=== PATIENT | female | born 1945 | race Caucasian/White ===

== ENCOUNTER 2020-12-07 08:03 | Outpatient (CLI) | payer OTHER, MEDICARE, SELFPAY | END 2020-12-07 08:04 | disposition home or self-care (01) | PROVIDERS: PCP Internal Medicine | DX: Z23 Encounter for immunization (principal) | CPT/HCPCS: 0001A; 91300 ==

== ENCOUNTER 2020-12-26 07:48 | Outpatient (CLI) | payer OTHER, SELFPAY ==
--- NOTE | 2020-12-26 08:57 | ECG_ITS ---
Measurements Intervals [place] Rate: 69 P: 37 [place]: 181 QRS: -11 QRSD: 100 T: 18 QT: 382 QTc: 410 Interpretive Statements SINUS RHYTHM BORDERLINE ST ABNORMALITY- ANTERIOR LEADS BASELINE ARTIFACT- I, III, AVR, AVL BORDERLINE ECG Electronically Signed On 12-26-2020 9:16:56 CDT by Anup Yuan D.O.
[2020-12-26 09:45] LABS: Basophils Absolute Auto 0.1 K/mm3 (0.0-0.1); Basophils Percent Auto 0.6 % (0.2-1.2); Eosinophils Absolute Auto 0.1 K/mm3 (0-0.3); Eosinophils Percent Auto 0.9 % (0-4.4); Hematocrit 42.5 % (37.0-47.0); Hemoglobin 13.8 g/dL (12.0-15.0); Immature Granulocyte Absolute 0.02 K/mm3 (0.00-0.031); Immature Granulocyte Percent A 0.3 % (0-0.5); Lymphocytes Absolute Auto 1.34 K/mm3 (0.9-3.2); Lymphocytes Percent Auto 17.2 % (18.3-44.2); Mean Corpuscular HGB Conc 32.5 g/dl (32-36); Mean Corpuscular Hemoglobin 32.1 pg (26-34); Mean Corpuscular Volume 98.8 fl (80-100); Mean Platelet Volume 10.5 fl (7.4-10.4); Monocytes Absolute Auto 0.7 K/mm3 (0.1-0.6); Monocytes Percent Auto 9.5 % (2.6-8.5); Neutrophils Absolute Auto 5.6 K/mm3 (1.3-6.7); Neutrophils Percent Auto 71.5 % (45.5-73.1); Platelet Count Result 252 k/mm3 (150-375); Red Cell Distribution Width 12.8 % (11.5-14.5); White Blood Count 7.8 K/mm3 (4.5-10.0)
[2020-12-26 09:48] LABS: Albumin Level 4.1 g/dL (3.5-5.1); Estimated Glomerular Filt Rate > 60; Glucose 94 mg/dL (65-105)
[2020-12-26 10:04] LABS: Urine Cotinine NEGATIVE
[2020-12-26 10:05] LABS: Hemoglobin A1C 5.2 % (<5.7)
== END 2020-12-26 07:49 | disposition home or self-care (01) ==
LOC: ANHSURGERY 07:55
PROVIDERS: PCP Internal Medicine; Visit Provider Orthopaedic Surgery
DX: Z01.818 Encounter for other preprocedural examination (principal); M17.0 Bilateral primary osteoarthritis of knee
CPT/HCPCS: 80307; 82040; 82565; 82947; 83036; 85025; 86850; 86900; 86901; 87081; 93005

== ENCOUNTER 2020-12-28 07:58 | Outpatient (CLI) | payer OTHER, MEDICARE, SELFPAY | END 2020-12-28 07:59 | disposition home or self-care (01) | LOC: ANHCOVIDVC 07:58 | PROVIDERS: PCP Internal Medicine | DX: Z23 Encounter for immunization (principal) | CPT/HCPCS: 0002A; 91300 ==

== ENCOUNTER → 2021-01-05 04:56 | Outpatient (CLI) | payer OTHER, SELFPAY ==
[2021-01-05 19:22] LABS: SARS-CoV-2 RNA PCR Negative
== END ==
PROVIDERS: PCP Internal Medicine; Visit Provider Orthopaedic Surgery
DX: Z01.812 Encounter for preprocedural laboratory examination (principal); Z20.822 Contact with and (suspected) exposure to COVID-19
CPT/HCPCS: C9803; U0003; U0005

== ENCOUNTER 2021-01-08 00:55 | Day surgery (SDC) | payer OTHER, SELFPAY ==
[2020-12-26 08:18] VITALS: BP 143/75; PULSE 78; RESP 16; TEMP 36.7; O2SAT 96; BMI 25.1
[2021-01-08] VITALS (13 sets, daily range): BP systolic 108–137; BP diastolic 58–70; PULSE 71–106; RESP 10–18; TEMP 36.1–36.6; O2SAT 94–99
--- NOTE | ~2021-01-08 | XR_ITS ---
EXAMINATION: XR knee RT 2V EXAM DATE: 01/08/2021 13:37 INDICATION: Right knee replacement. TECHNIQUE: Portable frontal, crosstable lateral projections right knee obtained immediately followin g arthroplasty. Procedure performed by Siva Madrid MD. FINDINGS: Patient is status post total knee arthroplasty. The orthopedic hardware is in expected po sition. There is small amount of subcutaneous gas, gas within the knee joint space. Overlying soft tissue swelling. Correlate with procedure note. IMPRESSION: Status post total right knee arthroplasty. Reviewed, dictated and finalized at location A.
[2021-01-08] MEDS: LACTATED RINGERS 1,000 ML 30 ML IV CONT ×2 (09:15→13:15)
--- NOTE | 2021-01-08 09:22 | WPDANESEPPF ---
Anes - Initial Pre Proc Eval Procedure: Operation Date: 01/08/21 10:30 Proposed Procedures p Right Total Knee Arthroplasty, Left Knee Injection - Siva Madrid MD Date/Time: 01/08/21 09:22 Surgeon: Siva Madrid MD Pre Op Diagnosis: OA, Bilateral Knee Patient Data Age: 75 Gender: F Height: 5 ft 5 in Weight: 68.5 kg Last Vital Signs Temp 36.7 C 12/26/20 08:18 Pulse 78 12/26/20 08:18 Resp 16 12/26/20 08:18 BP 143/75 H 12/26/20 08:18 Pulse Ox 96 12/26/20 08:18 Allergies Allergy/AdvReac Type Severity Reaction Status Date / Time propoxyphene AdvReac Mild Gastrointestinal Verified 01/08/21 08:01 Upset Home Medications Medication Instructions Recorded Confirmed Type tramadol 50 mg tablet 100 mg PO HS PRN 06/20/20 01/02/21 History acetaminophen 650 mg 1,300 mg PO Q8H PRN 10/04/20 01/02/21 History tablet,extended release ibuprofen 200 mg tablet 600 mg PO Q6H PRN 10/04/20 01/02/21 History alprazolam [Xanax] 0.5 mg PO HS PRN 12/26/20 01/02/21 History calcium carbonate-vitamin D2 1 tablet PO DAILY 12/26/20 01/02/21 History [Calcium + Vitamin D] [id number]-[id number]-[id number]-rni-bpy-fdxb-st 1 cap PO DAILY 12/26/20 01/02/21 History [Glucosamine Chondroitin PLUS] magnesium 200 mg PO DAILY 12/26/20 01/02/21 History rivaroxaban 10 mg tablet 10 mg PO DAILY #14 tablet 01/02/21 Rx Patient hx anesthesia problems: none Family hx anesthesia problems: none PMFSH Past Medical History Medical History Anxiety BMI 25.0-25.9,adult Degenerative arthritis of knee, bilateral Fibromyalgia Surgical History Surgical History H/O eye surgery (~2018) Family History Family History Father Family history of alcoholism Sibling Family history of malignant neoplasm Colon polyp Family history of malignant neoplasm of kidney Acute myocardial infarction Mother Carcinoma of colon Social History Social History Smoking packs per day: 1 Smoking cigarettes per day: 20.0 Years smoked: 20 Smoking pack-years: 20.00 Smoking status: Former smoker Tobacco type: cigarettes Smoking end date: 04/05/88 Alcohol intake: current Drinks per week: 3 Alcohol use details: 3 GLASSES WINE/WEEK Substance use: never Living arrangements: with family Additional living arrangements comments: Additional occupation/education comments: Hairdresser Gender identity (if verbalized by the patient): Female Spiritual care concerns: No Anes - Eval Final PreProcedure Day of Procedure 01/08/21 09:22 Patient weight: normal Heart: regular rate and rhythm Lungs: clear to auscultation Airway: Mallampati scale class II Neurological: alert and oriented Last oral intake: >/= 8 hours ASA classification: III Emergent: no Anesthetic plan: proceed Anesthesia type and monitoring: general LMA and standard monitoring Informed Consent: The patient's anesthetic plan and its attendant risks and benefits were discussed with the patient/family/POA. Questions were solicited and answers provided to the satisfaction of the patient/family/POA.
[2021-01-08] MEDS: ACETAMINOPHEN 500 MG TABLET 1000 MG PO ×2 (09:25→17:17)
[2021-01-08] MEDS: TRANEXAMIC ACID 1,000MG/ISO100 1,000 MG/100 ML BAG 200 MG IVPB (09:29)
--- NOTE | 2021-01-08 09:43 | WPDHPUPDATE1 ---
History and Physical Update Update Date/Time: 01/08/21 09:43 History and Physical has been reviewed, including an updated exam of the patient. There are NO changes in the patient's condition. Risks, benefits, and alternatives have been discussed and questions answered. Patient agrees to proceed with procedure.
--- NOTE | 2021-01-08 09:53 | WPDHPUPDATE1 ---
History and Physical Update Update Date/Time: 01/08/21 09:53 History and Physical has been reviewed, including an updated exam of the patient. There are NO changes in the patient's condition. Risks, benefits, and alternatives have been discussed and questions answered. Patient agrees to proceed with procedure.
--- NOTE | 2021-01-08 10:30 | WPDANESPNB ---
Anes - Peripheral Nerve Block Date/Time: 01/08/21 10:30 I have discussed with the patient/family/POA the placement of a peripheral nerve block for post-operative pain management, including associated risks, benefits, complications, and side effects. Alternative methods of post-operative analgesia were detailed. Questions were solicited and answers provided to the satisfaction of the patient/family/POA. Time-Out: A pre-procedural Time-Out was completed immediately before starting the procedure and confirmed: Patient Identification, Site, Procedure, Patient Position and the Availability of Requisite Equipment. Clinical Indications: Acute post-operative pain management requested by the operative surgeon. Nerve Block Insertion Note Anes-nerve block: adductor canal Patient position: supine Skin prep: chlorhexidine Needle: 22 gauge, stimulating, insulated echogenic needle. Needle length: 80 mm Technique: ultrasound Technique comment: mid2mg [id number] Injectate: bupivacaine 0.5% with epi 5 mcg/ml (30ml) Observations: tolerated well Complications: none Procedure start time:: 1017 Procedure end time:: 1025
[2021-01-08] MEDS: ceFAZolin 2 GM/D5W 50 ML 2 GM/50 ML BAG IVPB ×2 (10:49→18:21)
[2021-01-08] MEDS: TRIAMCINOLONE ACET INJ SUSP 50 MG/5 ML VIAL 20 MG IM (11:12)
[2021-01-08] MEDS: TRANEXAMIC ACID 1,000 MG/10 ML AMPUL 1000 MG TOPICAL (12:11)
[2021-01-08] MEDS: BUPIVACAINE/EPINEPHRINE 0.25% 50 ML VIAL INFILTRATE (12:11)
--- NOTE | 2021-01-08 13:22 | PM.PROC ---
Procedure Note - Detailed Date of procedure: 01/08/21 Pre-op diagnosis: OA, Bilateral Knee Post-op diagnosis: same Procedure performed: Right total knee; left knee intra-articular injection Description of procedure: The patient was identified and proper site identified. In the preop holding area the anesthesia team performed a right-sided sub sartorial block after which the patient was taken to the operating room and transferred to the OR table positioning supine taking care to pad the torso and extremities. After induction general anesthesia with intubation, a nonsterile tourniquet was placed high on the right thigh. After a time-out, the left knee was injected intra-articularly with 2 mL of 1% lidocaine and 20 mg of Kenalog without incident. The right lower extremity was prepped and draped in the usual sterile fashion. The extremity was exsanguinated and with the knee flexed tourniquet was inflated to 300 mmHg remaining up for approximately 66 minutes. An anterior midline incision was made and a mid vastus approach was used. Infra and suprapatellar fat pads were excised. Patella was resected leaving 15 mm thickness and prepared for the size 31 round three peg component. Using the intramedullary guide the distal femur was cut in the proper orientation for the size 65 femoral component. Using the extramedullary guide the tibia was cut perpendicular to the long axis protecting collateral ligaments and popliteal structures. It was sized to a 70 month. Flexion and extension gaps were balanced. Trial reduction was undertaken and the weight-bearing line was noted to passed through the center of the joint. Proximal tibia was drilled and punched in the proper orientation for the real component. Trial components were removed. The bone surfaces were washed with pulsatile lavage and dried. The real components were cemented simultaneously. The knee was held in extension and the patella held clamped until the cement had cured. Excess cement was removed from the joint. After trialing it was determined that the 11 mm insert gave full range of motion from 0-120 degrees of flexion and the patella tracked in the femoral groove with no lift-off. After final lavage the joint the real size 11 insert was placed and secured with a locking bar. A Betadine and saline wash was placed into the wound and allowed to sit for approximately 3 minutes and then evacuated. Periarticular tissues were infiltrated with 60 cc of the arthroplasty solution. 1 g of tranexamic acid was left in the wound. The extensor mechanism was repaired with #2 Vicryl suture and 0 looped PDS suture. Subcu was reapproximated with three 0 Monocryl, two 0 strata fix and tissue adhesive for the skin. A sterile dressing was applied. She tolerated the procedure well, was awakened and extubated, transferred to the bed and was taken to recovery area in stable condition. There were no known intraoperative complications. Perioperative antibiotics were administered. Anesthesia: GLMA and regional Surgeon: Siva Madrid MD Equalizing Saw Operator: Will Estimated blood loss (mL): 100 Tourniquet time (min): 66 Drains: No Packing: No Pathology: none sent Complications: No immediate complications Condition: stable Disposition: PACU
[2021-01-08] MEDS: fentaNYL CITRATE INJ (*CRX) 100 MCG/2 ML VIAL 25 MCG IV PUSH ×6 (13:39→14:18)
--- NOTE | 2021-01-08 14:14 | SUR.PHASEI ---
[id number] sbar faxed floor notified
--- NOTE | 2021-01-08 15:00 | ADMGEN ---
This patient, Lesly Schmitz, was admitted to -. Patient/family oriented to hospital policies and general routines including ID bracelet, bed and alarms, visiting hours, pain management, procedures, bathroom and other care routines, personal items, smoking policy, room service/diet, and visiting hours. Information on how to activate the Rapid Response Team has been discussed. Patient/Family are encouraged to report perceived risks to care and to ask questions if they do not understand what they are told or what they should do.
[2021-01-08] MEDS: oxyCODONE HCL (*CRX) 5 MG TAB IR PO ×2 (15:41→17:17)
[2021-01-08] MEDS: SODIUM CHLORIDE 0.9% IV 1,000 ML 125 ML IV CONT (15:42)
[2021-01-08] MEDS: ONDANSETRON INJ 4 MG/2 ML VIAL IV PUSH (16:14)
[2021-01-08] MEDS: DOCUSATE SODIUM 100 MG CAPSULE PO (17:17)
[2021-01-08] MEDS: TAPENTADOL HCL (*CRX) 50 MG TABLET PO (20:52)
[2021-01-08] MEDS: SENNOSIDES 8.6 MG TABLET 17.2 MG PO (20:52)
[2021-01-08] MEDS: FAMOTIDINE 20 MG TABLET PO (20:52)
[2021-01-08] MEDS: ALPRAZolam (*CRX) 0.5 MG TABLET PO (22:03)
[2021-01-09] MEDS: TAPENTADOL HCL (*CRX) 50 MG TABLET PO ×4 (00:16→12:13)
[2021-01-09] MEDS: ACETAMINOPHEN 500 MG TABLET 1000 MG PO ×3 (00:17→11:19)
[2021-01-09] MEDS: SODIUM CHLORIDE 0.9% IV 1,000 ML 125 ML IV CONT (00:17)
[2021-01-09 01:59] VITALS: BP 118/52; PULSE 84; RESP 16; TEMP 36.2; O2SAT 100
[2021-01-09] MEDS: ceFAZolin 2 GM/D5W 50 ML 2 GM/50 ML BAG IVPB ×2 (02:11→10:45)
[2021-01-09 07:00] VITALS: BP 115/53; PULSE 95; RESP 16; TEMP 36.7; O2SAT 97
--- NOTE | 2021-01-09 07:40 | WPDANESPN ---
Anes - Prog Note Post-Op Date/Time: 01/09/21 07:40 Cardiovascular status: normal Respiratory status: normal Airway patency: baseline Mental status: baseline Post-Op hydration status: normal Vital Signs: Last Vital Signs Temp 36.7 C 01/09/21 07:00 Pulse 95 01/09/21 07:00 Resp 16 01/09/21 07:00 BP 115/53 L 01/09/21 07:00 Pulse Ox 97 01/09/21 07:00 Pain Score (VAS): 0/10. Patient resting in bed at time of assessment, appears comfortable. Pt states mild nausea with relief with PRN meds. I/O: Intake & Output 01/08/21 01/08/21 01/09/21 15:59 23:59 07:59 Intake Total 450 1390 400 Output Total 950 Balance 450 1390 -550 Post-procedural complaints: nausea (mild nausea with relief with PRN meds. ) Patient Feedback: Patient satisfied with anesthetic care.
--- NOTE | 2021-01-09 07:47 | PM.DS ---
DS: Admitting Diagnosis Admitting Diagnosis Admitting Diagnosis: Bilateral knee osteoarthritis DS: Discharge Diagnosis Discharge Diagnosis (1) History of right knee joint replacement: Code(s): Z96.651 - Presence of right artificial knee joint Status: Resolved Assessment and Plan: Patient is going to be discharged home. Formal therapy begins next week. She has appointment to see me in two weeks. Instructions reviewed in detail. DS: Summary Hospital Course Reason for hospitalization: Observation following outpatient procedure. Hospital Course: Following the patient's right total knee replacement and left knee injection, she was admitted to the floor. She did well postoperatively and is going to be discharged home on postop day one. Status at Discharge Functional status at discharge: uses cane/walker Time Spent with Patient Time attestation: Total time spent providing and/or coordinating discharge services: Exam Const: General: cooperative, comfortable and no acute distress Nutritional Appearance: well nourished (BMI 25.1) GI: Inspection: normal to inspection (Nondistended) Extrem: Other: Right knee wound is clean and dry. Minimal swelling and no bruising appreciated. No erythema. Grossly motor and sensory function right lower extremity is intact with the exception of some residual numbness in the saphenous nerve distribution from the subsartorial block. Calves are negative. Discharge Plan Discharge Patient Disposition: Home, Self-Care Discharge Instructions: 3 times daily for 20 minutes each time, reclining in bed with ice packs over the incision and a pillow underneath the calf of the affected leg, not under the knee. Your wound is glued so it is okay to get into the shower and get the wound wet in two days. Be sure to read through all the information that came from a my office and the hospital. Most of the answers you will need can be found that material. Call the office with any questions that you cannot find answers to, or concerns you may have. After the Xarelto is completed, start taking one coated 325 mg aspirin daily and do this for four more weeks. Please call [facility] at as soon as possible to verify your follow-up appointment to be seen in 2 weeks. Also, call the office with any orthopedic/surgical related questions prior to follow-up. Be sure to get up and move around several times daily but do not overdo it. Take the arthritis formula Tylenol 650 mg tablet on an 8 hour schedule. A good 8 hour schedule is: 6:00 a.m., 2:00 p.m., 10:00 p.m. you may take the prescribed pain medication along with the Tylenol; it is not to be taken instead of the Tylenol. I would like for you to take the Tylenol on a schedule for 2-3 weeks. Take one Celebrex capsule every 12 hours for the next seven days. This is an adjunct to the other medication. Once the Xarelto is completed, if you wish to supplement your pain regimen with rwni-fri-uuhmtis anti-inflammatory such as Advil or Aleve, that is fine. Follow the label instructions. Do not take this medicine if you have an allergy to NSAIDs. Patient Instructions: Rivaroxaban (By mouth) Discharge Medications: New Nucynta 50 mg Tablet 50 mg PO Q4H PRN (Reason: pain) Qty: 42 RF: 0 ondansetron HCl [Zofran] 4 mg tablet 4 mg PO Q6H PRN (Reason: nausea and vomiting) Qty: 20 RF: 1 celecoxib [Celebrex] 100 mg capsule 100 mg PO BID Qty: 14 RF: 0 Continued acetaminophen [Tylenol Arthritis Pain] 650 mg tablet extended release 1,300 mg PO Q8H PRN (Reason: Pain) RF: 0 Xarelto 10 mg tablet 10 mg PO DAILY Qty: 14 RF: 0 calcium carbonate-vitamin D2 600 mg calcium- 200 unit Tablet 1 tablet PO DAILY RF: 0 magnesium 200 mg Tablet 200 mg PO DAILY RF: 0 Glucosamine Chondroitin PLUS [id number] mg Capsule 1 cap PO DAILY RF: 0 alprazolam [Xanax] 0.5 mg Tablet 0.5 mg PO HS PRN (Reason: Pain) RF: 0
[2021-01-09] MEDS: DOCUSATE SODIUM 100 MG CAPSULE PO (08:50)
[2021-01-09] MEDS: RIVAROXABAN 10 MG TABLET PO (08:51)
[2021-01-09] MEDS: FAMOTIDINE 20 MG TABLET PO (08:51)
[2021-01-09] MEDS: polyethylene glycoL 3350 17 GM POWD.PACK PO (08:51)
[2021-01-09 10:00] VITALS: BP 109/50; PULSE 78; RESP 18; TEMP 36.2; O2SAT 97
== END 2021-01-09 13:00 | disposition home or self-care (01) ==
LOC: ANHSURGERY 08:26 → ANH2MED 15:10
PROVIDERS: PCP Internal Medicine; Visit Provider Orthopaedic Surgery
PROC: (CPT 27447; principal; 2021-01-08 10:30)
DX: M17.0 Bilateral primary osteoarthritis of knee (principal); G89.18 Other acute postprocedural pain; M79.7 Fibromyalgia; F41.9 Anxiety disorder, unspecified; Z79.01 Long term (current) use of anticoagulants; Z87.891 Personal history of nicotine dependence
CPT/HCPCS: 27447; 20610; 64447; 73560; 80307; 82040; 82565; 82947; 83036; 85025; 86850; 86900; 86901; 87081; 93005; 97110; 97116; 97161; 97165; 97530; A9270; C1713; C1776; C9803; J0690; J1100; J1170; J2250; J2405; J2704; J3010; J3301; J7030; J7120; U0003; U0005

== ENCOUNTER 2021-02-13 11:00 | Outpatient (RCR) | payer OTHER, SELFPAY ==
--- NOTE | 2021-01-15 11:55 | PTOPEVAL ---
PHYSICAL THERAPY EVALUATION Thank you for referring Lesly Schmitz to [facility].? Lesly was evaluated for the dx of right TKA. The patient is scheduled to be seen for therapy? 2 x/week for 4 weeks. Please review, sign, date and return this plan of care NOY. I agree with and certify that the following plan of care is medically necessary. Referring Physician Date Referring Provider: Siva Madrid MD *PT Outpatient Evaluation Start: 01/15/21 10:33 Freq: Status: Active Protocol: Document 01/15/21 10:33 MLV (Rec: 01/15/21 11:20 MLV [id number]) Therapy Assessment Status Assessment Status Evaluation Evaluation Information Problem Diagnosis right TKA Onset 01/08/21 Cause OA Additional Evaluation Detail Pt was I w/o a device prior to surgery, did her housework, drives, shopping, and still works title department manager as a beautician. The pt reports pain at right knee constant and is a burning pain. The pt reports no trouble with the left knee, most likely because of recent shot given by . Pt is doing her exercises at home with daughter assist. Previous Treatments Previous Treatments For This Problem PT in hospital Pain Assessment Pain Scale Pain Scale Used Numeric (1 - 10) Self Report Pain Assessment Right Knee(s) Reported Pain Level 8 Pain Description Aching,Burning,Tightness Pain Frequency Acute,Chronic Greatest Pain Intensity 10 Pain Aggravating Factors Bending,Exercise/Activity, Prolonged Position Pain Behaviors Anxious,Guarding,Limping, Restless Pain Score Pain Score 8: Self Report Interventions Used Interventions Used By Clinicians Education,Exercise,Heat,Ice Pain Relief Interventions Used By Ice,Inactivity/Rest,Medication, Patient Position Change Other Alleviating Interventions tramadol (had prior for fibromyalgia) Lower Extremity Range of Motion General Lower Extremity Range of Motion Reason Not Measured WFL/Left,WFL/Right Gross Lower Extremity Range of Motion left knee 10-130 degrees Comments actively right knee 5-99 degrees actively; 5-108 degrees passively Lower Extremity Muscle Strength Testing General Lower Extremity Strength Reason Not Measured
--- NOTE | 2021-02-13 12:15 | PTOPEVAL ---
PHYSICAL THERAPY ASSESSMENT/POSSIBLE DISCHARGE Thank you for referring Lesly Schmitz to [facility].? The patient has been seen visits for the dx of right TKA. Plan to DC PT if approved after MD visit. Please review, sign, date and return this plan of care. I agree with and certify the following plan of care. Referring Physician Date Referring Provider: Siva Madrid MD *PT Outpatient Discharge Start: 01/15/21 10:33 Freq: Status: Active Protocol: Document 02/13/21 11:01 MLV (Rec: 02/13/21 11:57 MLV [id number]) Therapy Assessment Status Assessment Status Assessment Status Discharge Evaluation Information Problem Diagnosis right TKA Onset 01/08/21 Cause OA Additional Evaluation Detail Pt reports she is doing better with her exercises and her motion is get better. Patient is eager to get back to her full work schedule. Patient has been doing her housework and takes breaks to assure to not aggravate her knee. Pain Assessment Timing of Pain Assessment Timing of Pain Assessment Assessment Pain Scale Pain Scale Used Numeric (1 - 10) Self Report Pain Assessment Right Ankle(s) Reported Pain Level 8 Pain Description Aching Pain Frequency Acute Other Pain Description 3 since placing the tubigrip on ankle Right Knee(s) Reported Pain Level 2 Pain Description Aching Pain Frequency Acute,Chronic Pain Aggravating Factors Exercise/Activity Pain Behaviors Anxious Pain Score Pain Score 8,2: Self Report Interventions Used Interventions Used By Clinicians Exercise Pain Relief Interventions Used By Ice,Position Change,Walking Patient Other Alleviating Interventions tylenol and advil Lower Extremity Range of Motion General Lower Extremity Range of Motion Gross Lower Extremity Range of Motion right knee active motion: 8- Comments 124 passive 5-128 *right ankle motion WNL's and symmetrical Lower Extremity Muscle Strength Testing General Lower Extremity Strength Reason Not Measured WNL/Left Gross Lower Extremity Strength right hip 4+/5, knee extension 4+/5, knee flexion 4+/5, ankle 5/5 Palpation Assessment Palpation Palpation right ankle with edema at
--- NOTE | 2021-02-23 13:04 | PCPTNOTE ---
The patient saw MD and has been released from skilled PT and is to continue her exercises on her own at home. See last update note for details on the patient's status. DC PT.
== END 2021-04-02 10:17 | disposition home or self-care (01) ==
LOC: ANHPT 11:00
PROVIDERS: PCP Internal Medicine; Referring Provider Orthopaedic Surgery; Visit Provider Orthopaedic Surgery
DX: Z96.651 Presence of right artificial knee joint (principal)
CPT/HCPCS: 97014; 97110; 97116; 97140; 97162; G0283

== ENCOUNTER 2022-07-09 14:10 | Outpatient (CLI) | payer OTHER, SELFPAY ==
--- NOTE | ~2022-07-09 | US_ITS ---
EXAMINATION: US venous doppler [facility] DATE: 07/09/2022 14:37 INDICATION: M79.605 - Pain in left leg . TECHNIQUE: Grayscale images without and with compression and Doppler images of the left lower extremi ty veins were obtained. COMPARISON: None FINDINGS: The left common femoral vein, profunda femoral vein, femoral vein, popliteal vein, peroneal vein, and posterior tibial veins are patent. IMPRESSION: 1. Patent left lower extremity veins. No evidence of deep venous thrombosis. Reviewed, dictated and finalized at location K.
== END 2022-07-09 14:11 | disposition home or self-care (01) ==
PROVIDERS: PCP Internal Medicine; Visit Provider Nurse Practitioner
DX: M79.605 Pain in left leg (principal)
CPT/HCPCS: 93971

== ENCOUNTER 2022-11-05 07:42 | Outpatient (CLI) | payer OTHER, SELFPAY ==
--- NOTE | 2022-11-05 08:38 | ECG_ITS ---
Measurements Intervals [place] Rate: 65 P: 59 NM: 172 QRS: -16 QRSD: 93 T: 6 QT: 393 QTc: 410 Interpretive Statements SINUS RHYTHM VOLTAGE CRITERIA FOR LVH BASELINE WANDER- V3-V4 BORDERLINE ECG COMPARED TO ECG 12/26/2020 09:32:44 NO SIGNIFICANT CHANGES Electronically Signed On 11-05-2022 8:54:08 RUBBING BED OPERATOR by Anup Yuan D.O.
[2022-11-05 10:09] LABS: Basophils Absolute Auto 0.1 K/mm3 (0.0-0.1); Eosinophils Absolute Auto 0.1 K/mm3 (0-0.3); Eosinophils Percent Auto 2.2 % (0-4.4); Hematocrit 43.6 % (37.0-47.0); Hemoglobin 13.9 g/dL (12.0-15.0); Immature Granulocyte Absolute 0.03 K/mm3 (0.00-0.031); Immature Granulocyte Percent A 0.5 % (0-0.5); Lymphocytes Absolute Auto 1.86 K/mm3 (0.9-3.2); Lymphocytes Percent Auto 31.5 % (18.3-44.2); Mean Corpuscular HGB Conc 31.9 g/dl (32-36); Mean Corpuscular Hemoglobin 32.2 pg (26-34); Mean Corpuscular Volume 100.9 fl (80-100); Mean Platelet Volume 11.1 fl (7.4-10.4); Monocytes Absolute Auto 0.6 K/mm3 (0.1-0.6); Monocytes Percent Auto 9.5 % (2.6-8.5); Neutrophils Absolute Auto 3.3 K/mm3 (1.3-6.7); Neutrophils Percent Auto 55.3 % (45.5-73.1); Platelet Count Result 236 k/mm3 (150-375); Red Blood Count 4.32 M/mm3 (4.2-5.4); Red Cell Distribution Width 13.2 % (11.5-14.5); White Blood Count 5.9 K/mm3 (4.5-10.0)
[2022-11-05 10:19] LABS: Urine Cotinine NEGATIVE
[2022-11-05 10:21] LABS: Albumin Level 3.9 g/dL (3.5-5.1); Estimated Glomerular Filt Rate > 60; Glucose 82 mg/dL (65-110)
[2022-11-05 10:22] LABS: Hemoglobin A1C 5.2 % (<5.7)
== END 2022-11-05 07:43 | disposition home or self-care (01) ==
LOC: ANHSURGERY 07:46
PROVIDERS: PCP Internal Medicine; Visit Provider Orthopaedic Surgery
DX: M17.12 Unilateral primary osteoarthritis, left knee (principal); Z01.818 Encounter for other preprocedural examination
CPT/HCPCS: 80307; 82040; 82565; 82947; 83036; 85025; 86850; 86900; 86901; 87081; 93005

== ENCOUNTER 2022-12-10 09:50 | Observation (INO) | payer OTHER, SELFPAY ==
--- NOTE | 2022-11-05 07:48 | PC.NURSE ---
PRE-OP INSTRUCTIONS, PLEASE READ CAREFULLY Report to the Outpatient Waiting Room, entrance under the green pavilion located off [facility], at time _0600_ on date _11/18/22_. Planned Procedure Time: _0730_. PACK A SMALL OVERNIGHT BAG AND LEAVE IN THE CAR ALONG WITH YOUR WALKER Time changes happen often and if your time is changed the preop area will call you the afternoon before. - You and your visitor will be asked to self-screen and do not enter if you have any COVID symptoms. - Only one visitor is requested with a max of two and NO children visitors are allowed at this time. - The patient visitor may be requested to leave or wait in car when not with patient due to distancing restrictions. - A mask is optional within the hospital at this time. -VISITING HOURS 8AM-8PM, LIMITED TO 2 VISITORS AT A TIME Patients may have clear liquids (water, carbonated beverages, clear teas, apple juice) until 3 hours prior to surgery (0430 AM) with a maximum of 20 ounces. - No food from midnight until time of surgery Take the following medications with a SIP of water the morning of surgery: _ALPRAZOLAM & TYLENOL OR TRAMADOL IF NEEDED_ DO NOT STOP ANY OF YOUR OTHER PRESCRIPTION MEDICATIONS PRIOR TO SURGERY ?EXCEPT THE FOLLOWING Medications to discontinue per DR. SWENSON'S INSTRUCTIONS - _MELOXICAM_ Medications to discontinue per ANESTHESIA -_NEURIVA, GLUCOSAMINE CHONDROITIN, OMEGA XL, TURMERIC XL 3 DAYS PRIOR TO SURGERY, Date to take last dose 11/14/22_ Please no make-up, nail [place] citizen, hairspray, perfume, deodorant, or body powder the day of surgery. No jewelry (including any body piercings) or valuables the day of surgery, leave them at home. Please take a shower or bath the night before, or the morning of, surgery with an antibacterial soap. Wear comfortable, loose fitting clothing. - Jewelry must be removed prior to entering the operating room. Rings and piercings that are not removed may be cut off. - The hospital will not accept responsibility for valuables. - Please leave all valuables, including medications, at home the day of surgery. If you are going home after surgery, a licensed rolloff driver must drive you home. - NO public transportation without another adult if you receive anesthesia. - We recommend that an adult stay with you for 24 hours following discharge. - We also recommend that you do not drive, make important decision, drink alcoholic beverages, or take any drugs that were not prescribed by your health care provider for at least 24 hours after your discharge time. Follow any additional instructions given to you from your surgeon. If you or anyone in your household have experienced Covid symptoms in the past week, please notify your surgeon or the nurse liaison at the phone number below for possible testing. Instructions given to _PATIENT_and asked if any additional questions and then verbalized understanding. Patient advised to call surgeon office or pre surgery nurse liaison [phone] if any additional questions.
[2022-11-05 08:15] VITALS: BP 120/72; PULSE 70; RESP 18; TEMP 36.5; O2SAT 100; BMI 25.4
[2022-12-04 10:27] VITALS: BMI 25.8
--- NOTE | 2022-12-04 10:31 | PC.NURSE ---
Report to the Outpatient Waiting Room, entrance under the green pavilion located off [facility], at time ___0930____ on date __12/09/22 . Planned Procedure Time: ___1130 . Time changes happen often and if your time is changed the preop area will call you the afternoon before. - You and your visitor will be asked to self-screen and do not enter if you have any COVID symptoms. - Only one visitor is requested with a max of two and NO children visitors are allowed at this time. - The patient visitor may be requested to leave or wait in car when not with patient due to distancing restrictions. - A mask is optional within the hospital at this time. Patients may have clear liquids (water, carbonated beverages, clear teas, apple juice) until 3 hours prior to surgery (0830 AM) with a maximum of 20 ounces. - No food from midnight until time of surgery - Infants may have breast milk until 4 hours before surgery, formula 6 hours prior to surgery. - Children will be allowed to drink immediately following surgery. If applicable, please bring a bottle or sippy cup to assist with drinking. Juice, water, soda, and popsicles are readily available. For infants on formula, please bring formula the day of surgery. Pacifiers are allowed. Take the following medications with a SIP of water the morning of surgery: _ALPRAZOLAM & PAIN PILL IF NEEDED_ DO NOT STOP ANY OF YOUR OTHER PRESCRIPTION MEDICATIONS PRIOR TO SURGERY ?EXCEPT THE FOLLOWING Medications to discontinue _MELOXICAM PER DR. SWENSON'S INSTRUCTIONS_ Medications to discontinue per ANESTHESIA -_VITAMINS AND SUPPLEMENTS 3 DAYS PRIOR TO SURGERY, Date to take last dose 12/05/22__ Please no make-up, nail persian, hairspray, perfume, deodorant, or body powder the day of surgery. No jewelry (including any body piercings) or valuables the day of surgery, leave them at home. Please take a shower or bath the night before, or the morning of, surgery with an antibacterial soap. Wear comfortable, loose fitting clothing. - Jewelry must be removed prior to entering the operating room. Rings and piercings that are not removed may be cut off. - The hospital will not accept responsibility for valuables. - Please leave all valuables, including medications, at home the day of surgery. If you are going home after surgery, a licensed sprinkling truck driver must drive you home. - NO public transportation without another adult if you receive anesthesia. - We recommend that an adult stay with you for 24 hours following discharge. - We also recommend that you do not drive, make important decision, drink alcoholic beverages, or take any drugs that were not prescribed by your health care provider for at least 24 hours after your discharge time. Follow any additional instructions given to you from your surgeon. If you or anyone in your household have experienced Covid symptoms in the past week, please notify your surgeon or the nurse liaison at the phone number below for possible testing. Telephone instructions given to _PATIENT__and asked if any additional questions and then verbalized understanding. Patient advised to call surgeon office or pre surgery nurse liaison [phone] if any additional questions.
[2022-12-09] VITALS (14 sets, daily range): BP systolic 103–146; BP diastolic 51–78; PULSE 73–115; RESP 12–18; TEMP 36.1–37.1; O2SAT 94–100
--- NOTE | 2022-12-09 08:04 | WPDANESEPPF ---
Anes - Initial Pre Proc Eval Procedure: Operation Date: 12/09/22 11:30 Proposed Procedures p Left Total Knee Arthroplasty - Siva Madrid MD Date/Time: 12/09/22 08:04 Surgeon: Siva Madrid MD Pre Op Diagnosis: OA left knee Patient Data Age: 77 Gender: F Height: 1.65 m Weight: 70.5 kg Last Vital Signs Temp 36.5 C 11/05/22 08:15 Pulse 70 11/05/22 08:15 Resp 18 11/05/22 08:15 BP 120/72 11/05/22 08:15 Pulse Ox 100 11/05/22 08:15 O2 Del Method Room Air 11/05/22 08:15 Allergies Allergy/AdvReac Type Severity Reaction Status Date / Time hydrocodone [From [place]] AdvReac Intermediate NAUSEA/VOMI Verified 12/09/22 07:56 TING propoxyphene AdvReac Mild Gastrointestinal Verified 12/04/22 10:23 Upset Home Medications Medication Instructions Recorded Confirmed Type tramadol 50 mg tablet 100 mg PO HS PRN Pain 06/20/20 12/04/22 History hbpv-urbcg-qm5-xna-zke-ftme-sterols 1 cap PO DAILY 12/26/20 12/04/22 History 375 mg-100 mg-36 mg-54 mg capsule (Glucosamine Chondroitin PLUS) ropinirole 0.25 mg tablet See Rx Instructions .Route .COMPLEX 07/09/22 12/04/22 History [place] Xl 1 tab-cap DAILY 11/05/22 12/04/22 History Turmeric Xl 1 tab-cap DAILY 11/05/22 12/04/22 History alprazolam 0.25 mg tablet 0.25 mg BID PRN Anxiety 11/05/22 12/04/22 History coffee extract 100 mg-phosphatidyl 1 cap PO DAILY 11/05/22 12/04/22 History serine 100 mg capsule (Neuriva Original) magnesium oxide 500 mg capsule 500 mg PO DAILY 11/05/22 12/04/22 History meloxicam 15 mg tablet 15 mg PO DAILY PRN Pain 11/05/22 12/04/22 History tapentadol 50 mg tablet (Nucynta) 50 mg PO Q6H PRN pain #42 tabs 11/13/22 12/04/22 Rx Patient hx anesthesia problems: none Family hx anesthesia problems: none Results Review: All pre-operative results and documents have been reviewed as part of the pre-operative evaluation. [facility] Past Medical History Medical History Anxiety BMI 25.0-25.9,adult Fibromyalgia Left leg pain Osteoarthritis of left knee Surgical History Surgical History H/O eye surgery (~2017) History of right knee joint replacement January 08, 2021 Family History Family History Father Family history of alcoholism Sibling Family history of malignant neoplasm Colon polyp Family history of malignant neoplasm of kidney Acute myocardial infarction Mother Carcinoma of colon Social History Social History Smoking packs per day: 1 Smoking cigarettes per day: 20.0 Years smoked: 20 Smoking pack-years: 20.00 Smoking status: Former smoker Tobacco type: cigarettes Second hand tobacco smoke exposure: No Smoking end date: 04/05/88 Additional smoking assessment comments: PT DENIES ALL FORMS OF TOBACCO USE Alcohol intake: current Drinks per week: 3 Alcohol use details: 3-10 GLASSES WINE/MONTH Substance use: current Substance use type: marijuana Other substance usage details: MARIJUANA - 1 GUMMY @ [facility] PRN FOR SLEEP Living arrangements: with family Additional living arrangements comments: LIVES WITH SPOUSE - [place] Occupation/Education: occupation Additional occupation/education comments: [employer] Gender identity (if verbalized by the patient): Female Sexual Orientation (if Verbalized by the Patient): Straight or Heterosexual Spiritual care concerns: No Anes - Eval Final PreProcedure Day of Procedure 12/09/22 08:04 Patient weight: normal Heart: regular rate and rhythm Lungs: clear to auscultation Airway: Mallampati scale class II Neurological: alert and oriented Last oral intake: >/= 8 hours ASA classification: II Emergent: no Anesthetic plan: proceed Anesthesia type and monitoring: general LMA and standard monitoring
--- NOTE | 2022-12-09 08:08 | WPDANESPNB ---
Anes - Peripheral Nerve Block Date/Time: 12/09/22 08:08 I have discussed with the patient/family/POA the placement of a peripheral nerve block for post-operative pain management, including associated risks, benefits, complications, and side effects. Alternative methods of post-operative analgesia were detailed. Questions were solicited and answers provided to the satisfaction of the patient/family/POA. Time-Out: A pre-procedural Time-Out was completed immediately before starting the procedure and confirmed: Patient Identification, Site, Procedure, Patient Position and the Availability of Requisite Equipment. Clinical Indications: Acute post-operative pain management requested by the operative surgeon. Nerve Block Insertion Note Anes-nerve block: adductor canal left Patient position: supine Skin prep: chlorhexidine Needle: 22 gauge, stimulating, insulated echogenic needle. Needle length: 80 mm Technique: ultrasound Technique comment: in plane Injectate: bupivacaine 0.25% with epi 5 mcg/ml (30cc) Observations: tolerated well Complications: none Procedure start time:: 835 Procedure end time:: 840
--- NOTE | 2022-12-09 08:17 | WPDHPUPDATE1 ---
History and Physical Update Update Date/Time: 12/09/22 08:17 History and Physical has been reviewed, including an updated exam of the patient. There are NO changes in the patient's condition. Risks, benefits, and alternatives have been discussed and questions answered. Patient agrees to proceed with procedure.
[2022-12-09] MEDS: LACTATED RINGERS 1,000 ML 30 ML IV CONT ×2 (08:26→12:26)
[2022-12-09] MEDS: ACETAMINOPHEN 500 MG TABLET 1000 MG PO ×3 (08:27→21:04)
[2022-12-09] MEDS: TRANEXAMIC ACID 1,000MG/ISO100 1,000 MG/100 ML BAG 200 MG IVPB (08:28)
[2022-12-09] MEDS: ceFAZolin 2 GM/D5W 50 ML 2 GM/50 ML BAG IVPB ×2 (08:50→17:46)
[2022-12-09] MEDS: ceFAZolin SODIUM 1 GM VIAL IV PUSH (11:26)
--- NOTE | 2022-12-09 12:04 | W.PM.PROC2 ---
Procedure Note - Detailed Date of Procedure 12/09/22 Pre-op Diagnosis OA left knee Post-op Diagnosis Same Procedure Performed Left total knee replacement Surgeon Siva Madrid MD [employer] Chemist Shila Ennis Anesthesia General and Regional Description of Procedure The patient was identified and proper site identified. In the preop holding area the anesthesia team performed a left lower extremity sub sartorial block after which the patient was taken to the operating room and transferred to the OR table positioning supine taking care to pad the torso and extremities. After general anesthetic induction and intubation a nonsterile tourniquet was placed high on the left thigh. The left lower extremity was prepped and draped in the usual sterile fashion. The extremity was exsanguinated and with the knee flexed tourniquet was inflated to 300 mmHg remaining up for approximately 52 minutes. An anterior midline incision was made and a mid vastus approach was used. Infra and suprapatellar fat pads were excised. Patella was resected leaving 15 mm thickness and prepared for the round three peg component. Using the intramedullary guide the distal femur was cut in the proper orientation for the size 65 femoral component. Using the extramedullary guide the tibia was cut perpendicular to the long axis protecting collateral ligaments and popliteal structures. It was sized to a size 71. Flexion and extension gaps were balanced. Trial reduction was undertaken and the weight-bearing line was noted to passed through the center of the joint. Proximal tibia was drilled and punched in the proper orientation for the real component. Trial components were removed. The bone surfaces were washed with pulsatile lavage and dried. The real components were cemented simultaneously. The knee was held in extension and the patella held clamped until the cement had cured. Excess cement was removed from the joint. After trialing it was determined that the 10 mm insert gave full range of motion from 0-120 degrees of flexion and the patella tracked in the femoral groove with no lift-off. After final lavage the joint the real 10 insert was placed and secured with a locking bar. A Betadine and saline wash was placed into the wound and allowed to sit for approximately 3 minutes and then evacuated. Periarticular tissues were infiltrated with 60 cc of the arthroplasty solution. Surgicel powder was applied into the wound during the closure. The extensor mechanism was repaired with #2 Vicryl suture and 0 looped PDS suture. The knee was taken through range of motion and a reproducible clunk could be appreciated postero-laterally. The wound was reopened. There was a small spur on the lateral margin of the femoral condyle but also the popliteus was snapping over the posterior lateral aspect of the tibial polyethylene. Spur was removed and the popliteus tendon released. This eliminated the clunk. The wound was again irrigated sterile saline and the extensor mechanism reclosed. Subcu was reapproximated with 3-0 Monocryl, 2-0 Quill and tissue adhesive for the skin. A sterile dressing was applied. She tolerated the procedure well, was awakened and extubated, transferred to the bed and was taken to recovery area in stable condition. There were no known intraoperative complications. Perioperative antibiotics were administered. Estimated Blood Loss 150 Tourniquet Time 52 Drains No Pathology None sent Complications No immediate complications Condition Stable Disposition PACU [facility] Billing Surgery - Charge Forward: Surgery Billing ([id number])
[2022-12-09] MEDS: fentaNYL CITRATE INJ (*CRX) 100 MCG/2 ML VIAL 25 MCG IV PUSH ×8 (12:32→12:53)
[2022-12-09] MEDS: HYDROmorphone HCL INJ (*CRX) 1 MG/ML SYR 0.5 MG IV PUSH ×4 (13:00→13:36)
--- NOTE | 2022-12-09 14:00 | ADMGEN ---
This patient, Lesly Schmitz, was admitted to Medical Room 247-. Patient/family oriented to hospital policies and general routines including ID bracelet, bed and alarms, visiting hours, pain management, procedures, bathroom and other care routines, personal items, smoking policy, room service/diet, and visiting hours. Information on how to activate the Rapid Response Team has been discussed. Patient/Family are encouraged to report perceived risks to care and to ask questions if they do not understand what they are told or what they should do.
[2022-12-09] MEDS: SODIUM CHLORIDE 0.9% IV 1,000 ML 125 ML IV CONT (14:18)
[2022-12-09] MEDS: TAPENTADOL HCL (*CRX) 50 MG TABLET PO ×3 (15:28→21:05)
[2022-12-09] MEDS: ONDANSETRON INJ 4 MG/2 ML VIAL IV PUSH (15:28)
[2022-12-09] MEDS: SENNA/DOCUSATE SODIUM TABLET 2 TAB PO (17:47)
[2022-12-09] MEDS: oxyCODONE HCL (*CRX) 2.5 MG TAB IR PO ×2 (17:52→22:31)
--- NOTE | 2022-12-09 19:15 | WPDCN ---
Assessment and Plan Assessment and plan (1) Osteoarthritis of left knee: Qualifiers: Osteoarthritis type: primary Qualified Code(s): M17.12 - Unilateral primary osteoarthritis, left knee Code(s): M17.12 - Unilateral primary osteoarthritis, left knee Status: Chronic Assessment and Plan: Postoperative day 0 status post left total knee replacement. Wound care, pain control, and DVT prophylaxis deferred to Dr. Madrid. BMP and CBC ordered for a.m.. Vital signs have been stable postoperatively. (2) Anxiety: Code(s): F41.9 - Anxiety disorder, unspecified Status: Acute Assessment and Plan: Continue alprazolam b.i.d. as needed. (3) Fibromyalgia: Code(s): M79.7 - Fibromyalgia Status: Acute Assessment and Plan: Continue chronic pain regimen. Plan Thank you for allowing us to participate in this patient's care. Please do not hesitate to contact us with any questions. HPI Data of Consult Date/Time: 12/09/22 19:15 Requesting Physician: Siva Madrid MD Consult Narrative Reason for consult: Postoperative medical management. Narrative: This is a 77-year-old female with history of anxiety, fibromyalgia, and left knee arthritis status post left total knee replacement per Dr. Madrid whom the hospitalist service has been consulted for management of her medical conditions postoperatively. She has had longstanding pain in her left knee not amenable to conservative treatment and she opted for replacement today. A couple of years ago she had her right knee done and did well with that. Her surgery was performed under general and regional anesthesia with no immediate complications documented and an estimated blood loss of 150 mL. Postoperatively she had some nausea and dry heaves but that has resolved and she is now tolerating p.o.. Currently rates pain 8/10 in the left knee which she describes as a severe ache. She also complains of a headache and is asking for an ice pack for that. On discharge she is going to be at home with her . Daughter is going to be coming each morning to help with exercises and her will care for her through the day. She denies fever, chills, sweats, vomiting, chest pain, and shortness of breath. No personal or family history venous thromboembolism. Review of Systems Review of Systems: Twelve systems were reviewed. No recent cold or flu symptoms. No history of DVT. She has chronic pain related to fibromyalgia and is on a regimen for that. Anxiety is controlled on alprazolam as needed. except as documented, all other systems were reviewed and are negative. REPLACED BY [facility] Past Medical History Medical History (Updated 12/09/22 @ 22:54 by Sandra Crow PA-C) Anxiety Fibromyalgia Osteoarthritis of left knee Osteopenia Surgical History Surgical History (Updated 12/09/22 @ 22:51 by Sandra Crow PA-C) History of benign breast biopsy History of cataract extraction with lens replacement (2017) History of colonoscopy with polypectomy History of left knee replacement (12/09/22) Per Dr. Madrid. History of right knee joint replacement (01/08/21) Per Dr. Madrid. Family History Family History Father Family history of alcoholism Sibling Family history of malignant neoplasm Colon polyp Family history of malignant neoplasm of kidney Acute myocardial infarction Mother Carcinoma of colon Social History Social History (Updated 12/09/22 @ 22:53 by Sandra Crow PA-C) Social History: Surrogate medical decision maker: Ino Schmitz, spouse. Code status: Full code. Smoking packs per day: 1 Smoking cigarettes per day: 20.0 Years smoked: 20 Smoking pack-years: 20.00 Smoking status: Former smoker Tobacco type: cigarettes Second hand tobacco smoke exposure: No Smoking end date: 04/05/88 Alcohol intake: current Drinks per week: 3 Alcohol use det
[2022-12-09] MEDS: FAMOTIDINE 20 MG TABLET PO (21:05)
--- NOTE | ~2022-12-10 | XR_ITS ---
EXAMINATION: [id number] DATE: 12/09/2022 12:44 INDICATION: Left knee arthroplasty. Postop. TECHNIQUE: 2 views of left knee were obtained. COMPARISON: Left knee radiographs 11/25/2022 FINDINGS: There is a total left knee arthroplasty with patellar resurfacing in near-anatomic alignmen t. No fracture. There is gas in the knee joint and soft tissues, consistent with recent surgery. IMPRESSION: 1. Total left knee arthroplasty in near-anatomic alignment. Reviewed, dictated and finalized at location A. GER SIGN
[2022-12-10] MEDS: TAPENTADOL HCL (*CRX) 50 MG TABLET PO ×6 (01:15→20:21)
[2022-12-10] MEDS: ceFAZolin 2 GM/D5W 50 ML 2 GM/50 ML BAG IVPB ×2 (01:15→08:14)
[2022-12-10] MEDS: ACETAMINOPHEN 500 MG TABLET 1000 MG PO ×4 (01:15→20:21)
[2022-12-10 03:28] VITALS: BP 103/56; PULSE 81; RESP 18; TEMP 36.3; O2SAT 100
[2022-12-10] MEDS: oxyCODONE HCL (*CRX) 2.5 MG TAB IR PO ×4 (03:35→18:00)
[2022-12-10 05:32] LABS: Hematocrit 33.5 % (37.0-47.0); Mean Corpuscular HGB Conc 32.8 g/dl (32-36); Mean Corpuscular Hemoglobin 32.4 pg (26-34); Mean Corpuscular Volume 98.5 fl (80-100); Mean Platelet Volume 10.8 fl (7.4-10.4); Platelet Count Result 196 k/mm3 (150-375); Red Cell Distribution Width 12.8 % (11.5-14.5); White Blood Count 10.4 K/mm3 (4.5-10.0)
[2022-12-10 05:52] LABS: Anion Gap 4 mmol/L (8-16); Blood Urea Nitrogen 17 mg/dL (7-17); Calcium 8.6 mg/dL (8.4-10.2); Carbon Dioxide 26 mmol/L (22-30); Chloride 104 mmol/L (98-107); Estimated CRCL calculation 48 ml/min; Estimated Glomerular Filt Rate > 60; Glucose 127 mg/dL (65-110); Magnesium 1.9 mg/dL (1.6-2.3); Potassium 4.6 mmol/L (3.4-5.0); Sodium 134 mmol/L (137-145)
[2022-12-10] MEDS: RIVAROXABAN 10 MG TABLET PO (08:12)
[2022-12-10] MEDS: SENNA/DOCUSATE SODIUM TABLET 2 TAB PO ×2 (08:12→17:41)
[2022-12-10] MEDS: polyethylene glycoL 3350 17 GM POWD.PACK PO (08:13)
[2022-12-10] MEDS: FAMOTIDINE 20 MG TABLET PO ×2 (08:13→20:21)
--- NOTE | 2022-12-10 10:40 | PM.PNORT ---
Progress Note: A&P Assessment and Plan (1) Status post total left knee replacement: Code(s): Z96.652 - Presence of left artificial knee joint Status: Acute Plan 77-year-old female postop day 1 after left total knee arthroplasty. Still struggling quite a bit with pain, especially when attempting day ambulate. Plan for her to see therapy today. She will not have much help while at home this afternoon so I think it would be reasonable for her to stay another night. Plan discharge on 12/11/2022. Although she has an allergy to hydrocodone, she is doing well with the prescribed oxycodone so will plan to discharge with this rather than Nucynta. Will reassess her in the morning. Subjective Subjective Date/Time Seen: 12/10/22 10:40 Post Op day: 1 Principal diagnosis: Status post left total knee replacement Interval history: 77-year-old female postop day 1 after left total knee. She is having quite a bit of pain and swelling globally to the left knee. The incision at the left knee did have to be reopened due to a clicking noise while she was being closed in the operating room. She was able to work with therapy but states she would not have much help while at home this afternoon. She has had no nausea with the oxycodone and states it is helping the most with her pain. She would like to continue with therapy today and tomorrow. Review of Systems Constitutional: Constitutional: Reports as per HPI and Reports no additional constitutional complaints Musculoskeletal: Musculoskeletal: Reports no additional musculoskeletal complaints and Reports as per HPI Exam Const: General: comfortable and no acute distress Resp: Effort & Inspection: normal respiratory effort Skin: General skin exam: ecchymosis (Left knee) and wounds noted (Surgical incision, anterior left knee) Neuro: Sensory Exam: normal sensation Extrem: Other: Exam of the left knee demonstrates active extension to near 0?. Calves negative. There is moderate swelling to the left knee and distal left leg. Surgical dressing is clean and dry. Neurovascular status left lower extremity is intact. Psych: Mental Status: mental status grossly normal Radiology Reports: Comments: EXAMINATION: [id number] DATE: 12/09/2022 12:44 INDICATION: Left knee arthroplasty. Postop. TECHNIQUE: 2 views of left knee were obtained. COMPARISON: Left knee radiographs 11/25/2022 FINDINGS: There is a total left knee arthroplasty with patellar resurfacing in near-anatomic alignment. No fracture. There is gas in the knee joint and soft tissues, consistent with recent surgery. IMPRESSION: 1. Total left knee arthroplasty in near-anatomic alignment. Hip and Pelvis X-Ray 02/21/22 Knee X-Ray 12/09/22 Shoulder X-Ray 11/22/21 Orthopedics Result Report 11/25/22 Objective Data Vital Signs Vital Signs: Vital Signs - 24 hr 12/09/22 12:26 12/09/22 12:40 12/09/22 12:55 Temperature 98.7 F Pulse Rate 115 H 103 H 101 H Respiratory Rate 12 12 12 Blood Pressure 146/77 H 129/78 127/72 Pulse Oximetry 97 98 98 Oxygen Delivery Simple Face Mask Simple Face Mask Simple Face Mask Oxygen Flow Rate 8 10 10 12/09/22 13:10 12/09/22 13:25 12/09/22 13:40 Temperature Pulse Rate 106 H 97 97 Respiratory Rate 16 16 16 Blood Pressure 124/66 121/72 121/72 Pulse Oximetry 94 95 95 Oxygen Delivery Room Air Room Air Nasal Cannula Oxygen Flow Rate 2 12/09/22 13:43 12/09/22 13:58 12/09/22 14:28 Temperature 97.7 F 97.7 F 97.7 F Pulse Rate 99 96 90 Respiratory Rate 16 16 16 Blood Pressure 123/66 126/66 125/66 Pulse Oximetry 97 96 96 Oxygen Delivery Oxygen Flow Rate 12/09/22 16:05 12/09/22 15:57 12/09/22 19:28 Temperature 97 F L 97.2 F L Pulse Rate 102 H 80 Respiratory Rate 18 18 Blood Pressure 124/54 L 130/66 Pulse Oximetry 94 98 Oxygen Delivery Room Air Oxygen Flow Rate 12/09/22 23:28 12/10/22 03:28 12/09/22 2
--- NOTE | 2022-12-10 10:51 | PCOTNOTE ---
Attempted to see Patient for A.M. treatment session. Patient refused any activity at this time, verbalizing, I'm in so much pain right now, I know I have to do it and I will but come back later on .
--- NOTE | 2022-12-10 13:04 | WPDANESPN ---
Anes - Prog Note Post-Op Date/Time: 12/10/22 13:04 Cardiovascular status: normal Respiratory status: normal Airway patency: baseline Mental status: baseline Post-Op hydration status: normal Vital Signs: Last Vital Signs Temp 36.3 C L 12/10/22 03:28 Pulse 81 12/10/22 03:28 Resp 18 12/10/22 03:28 BP 103/56 L 12/10/22 03:28 Pulse Ox 100 12/10/22 03:28 O2 Del Method Room Air 12/09/22 20:00 O2 Flow Rate 2 12/09/22 13:40 Pain Score (VAS): 12/13 I/O: Intake & Output 12/09/22 12/10/22 12/10/22 23:59 07:59 15:59 Intake Total 290 540 480 Balance 290 540 480 Laboratory Tests 12/10/22 04:53 12/10/22 04:53 12/10/22 12/10/22 04:53 04:53 WBC 10.4 H RBC 3.40 L Hgb 11.0 L Hct 33.5 L MCV 98.5 MCH 32.4 MCHC 32.8 RDW 12.8 Plt Count 196 MPV 10.8 H Sodium 134 L Potassium 4.6 Chloride 104 Carbon Dioxide 26 Anion Gap 4 L BUN 17 Creatinine 0.80 Estim Creat Clear Calc 48 Estimated GFR > 60 Glucose 127 H Calcium 8.6 Magnesium 1.9 Post-procedural complaints: none Patient Feedback: Patient satisfied with anesthetic care.
[2022-12-10 13:14] VITALS: BP 109/53; PULSE 90; RESP 18; TEMP 36.4; O2SAT 99
--- NOTE | 2022-12-10 14:18 | PM.IMPN ---
Progress Note: A&P Assessment and Plan (1) Osteoarthritis of left knee: Qualifiers: Osteoarthritis type: primary Qualified Code(s): M17.12 - Unilateral primary osteoarthritis, left knee Code(s): M17.12 - Unilateral primary osteoarthritis, left knee Status: Resolved Assessment and Plan: Postoperative day 1 status post left total knee replacement. Wound care, pain control, and DVT prophylaxis deferred to Dr. Madrid. Vital signs have been stable postoperatively. (2) Anxiety: Code(s): F41.9 - Anxiety disorder, unspecified Status: Acute Assessment and Plan: Continue alprazolam b.i.d. as needed. (3) Fibromyalgia: Code(s): M79.7 - Fibromyalgia Status: Acute Assessment and Plan: Continue chronic pain regimen. Subjective Date/time seen: 12/10/22 14:18 Interval history: Patient sitting up in bed and just work physical therapy. She is having pain in her left knee. Patient has no other medical complaints other than knee pain. Orthopedics managing. Review of Systems Review of Systems: All systems reviewed & are unremarkable except as noted in HPI and below Exam Narrative: GENERAL: Comfortable, no acute distress HENMT: moist mucous membranes RESPIRATORY: clear to auscultation CARDIO: RRR GI: soft, nontender, bowel sounds present SKIN: no rashes EXTREMITIES: no edema, redness; Left knee tenderness Objective Data Vital Signs Vital Signs: Vital Signs - 24 hr 12/09/22 14:28 12/09/22 16:05 12/09/22 15:57 Temperature 97.7 F 97 F L Pulse Rate 90 102 H Respiratory Rate 16 18 Blood Pressure 125/66 124/54 L Pulse Oximetry 96 94 Oxygen Delivery Room Air 12/09/22 19:28 12/09/22 23:28 12/10/22 03:28 Temperature 97.2 F L 97.3 F L 97.4 F L Pulse Rate 80 78 81 Respiratory Rate 18 18 18 Blood Pressure 130/66 103/51 L 103/56 L Pulse Oximetry 98 100 100 Oxygen Delivery 12/09/22 20:00 12/10/22 13:14 Temperature 97.6 F Pulse Rate 81 90 Respiratory Rate 18 18 Blood Pressure 109/53 L Pulse Oximetry 100 99 Oxygen Delivery Room Air Intake/Output Intake/Output: Intake & Output 12/07/22 12/08/22 12/09/22 12/10/22 23:59 23:59 23:59 23:59 Intake Total 1040 1020 Balance 1040 1020 Meds/Results Medications: Active Medications Generic Name Dose Route Start Last Admin Trade Name Freq PRN Reason Stop Dose Admin Acetaminophen 1,000 mg 12/09/22 14:00 12/10/22 14:00 Acetaminophen 500 Mg Tablet PO 1,000 mg Q6H DESIREE Administration Alprazolam 0.25 mg 12/09/22 13:43 Alprazolam (*Crx) 0.25 Mg Tablet BY MOUTH BID PRN Anxiety Famotidine 20 mg 12/09/22 21:00 12/10/22 08:13 Famotidine 20 Mg Tablet PO 20 mg Q12HR DESIREE Administration Miscellaneous Information 1 each 12/09/22 00:01 Magnesium Oxide 500mg Is Non Formulary. We Stock 400mg Or Place On Hold Until Discharged? XX 01/08/23 00:00 CLARIFY DESIREE Naloxone HCl 0.1 mg 12/09/22 13:43 Naloxone Hcl 0.4 Mg/Ml Vial IV PUSH Q2M PRN Opiate Reversal Non-Formulary Medication 500 mg 12/10/22 09:00 Magnesium Oxide PO 01/09/23 08:59 DAILY DESIREE Ondansetron HCl 4 mg 12/09/22 15:14 12/09/22 15:28 Ondansetron Inj 4 Mg/2 Ml Vial IV PUSH 4 mg Q6H PRN Administration Nausea And Vomiting Oxycodone HCl 2.5 mg 12/09/22 13:43 12/10/22 14:03 Oxycodone Hcl (*Crx) 2.5 Mg Tab Ir PO 2.5 mg Q4H PRN Administration Pain Rated 7-10 Polyethylene Glycol 17 gm 12/10/22 09:00 12/10/22 08:13 Polyethylene Glycol 3350 17 Gm Powd.Pack PO 17 gm QAM DESIREE Administration Rivaroxaban 10 mg 12/10/22 09:00 12/10/22 08:12 Rivaroxaban 10 Mg Tablet PO 12/21/22 09:01 10 mg QAM DESIREE Administration Ropinirole HCl 0.25 - 0.5 mg 12/09/22 13:43 Ropinirole Hcl 0.25 Mg Tablet BY MOUTH PRN PRN RESTLESS LEG SYNDROME Senna/Docusate Sodium 2 tab 12/09/22 17:00 12/10/22 0
[2022-12-10 20:00] VITALS: PULSE 99; RESP 18; O2SAT 99
[2022-12-10] MEDS: ALPRAZolam (*CRX) 0.25 MG TABLET BY MOUTH (20:21)
[2022-12-10 20:52] VITALS: BP 107/51; PULSE 99; RESP 18; TEMP 36.4; O2SAT 99
[2022-12-11] MEDS: TAPENTADOL HCL (*CRX) 50 MG TABLET PO ×3 (01:39→12:04)
[2022-12-11] MEDS: ACETAMINOPHEN 500 MG TABLET 1000 MG PO ×2 (01:39→08:13)
[2022-12-11] MEDS: oxyCODONE HCL (*CRX) 2.5 MG TAB IR PO (02:18)
[2022-12-11 05:03] VITALS: BP 114/66; PULSE 102; RESP 18; TEMP 35.8; O2SAT 98
[2022-12-11 06:20] LABS: Hemoglobin 10.4 g/dL (12.0-15.0); Mean Corpuscular HGB Conc 32.5 g/dl (32-36); Mean Corpuscular Volume 98.5 fl (80-100); Platelet Count Result 183 k/mm3 (150-375); Red Blood Count 3.25 M/mm3 (4.2-5.4); Red Cell Distribution Width 12.9 % (11.5-14.5); White Blood Count 8.2 K/mm3 (4.5-10.0)
[2022-12-11 06:32] LABS: Anion Gap 3 mmol/L (8-16); Blood Urea Nitrogen 15 mg/dL (7-17); Calcium 8.4 mg/dL (8.4-10.2); Carbon Dioxide 25 mmol/L (22-30); Chloride 104 mmol/L (98-107); Estimated CRCL calculation 54 ml/min; Estimated Glomerular Filt Rate > 60; Glucose 95 mg/dL (65-110); Potassium 3.6 mmol/L (3.4-5.0); Sodium 132 mmol/L (137-145)
--- NOTE | 2022-12-11 07:31 | PM.DS ---
DS: Admitting Diagnosis Discharge Date 12/11/2022 Admitting Diagnosis Left knee osteoarthritis DS: Discharge Diagnosis Discharge Diagnosis (1) Status post total left knee replacement: Code(s): Z96.652 - Presence of left artificial knee joint Status: Acute Plan 77-year-old female postop day 2 after left total knee arthroplasty. Uneventful overnight stay. Participated very well with therapy yesterday and was able to ambulate stairs. She continues to take the oxycodone without any nausea or vomiting. Will plan to discharge with oxycodone instead of the Nucynta. She also has help at home starting this evening. Postoperative wound care and medications were discussed in detail. Plan follow-up in 2 weeks for wound check. She will call our office if any further questions or concerns prior to that scheduled follow-up. DS: Summary Hospital Course Reason for hospitalization: Observation after outpatient procedure Hospital Course: 77-year-old female admitted for observation after left total knee arthroplasty. She did have quite a bit of pain and swelling at the knee yesterday so we felt that it would be reasonable for her to stay an extra night to help get pain under control and work more with therapy. Her repeat labs do show a bit of an anemia but this is reasonable in the postoperative period. Plan discharge later today with scheduled follow-up in 2 weeks at our office. Status at Discharge Functional status at discharge: uses cane/walker Overall status at discharge: patient is progressing back to baseline Time Spent with Patient Time attestation: Total time spent providing and/or coordinating discharge services: Time spent: Less than 30 minutes Exam Const: General: comfortable and no acute distress HENMT: Mouth: Yes moist mucous membranes Eyes: General: appearance normal, both eyes and all related structures Resp: Effort & Inspection: normal respiratory effort Skin: General skin exam: ecchymosis (Left knee) and wounds noted (Surgical incision, anterior left knee) Neuro: Sensory Exam: normal sensation Extrem: Other: Exam of the left knee demonstrates active extension to near 0?. Calves negative. There is moderate swelling to the left knee and distal left leg. Surgical dressing is clean and dry. Neurovascular status left lower extremity is intact. Psych: Mental Status: mental status grossly normal Radiology Reports: Comments: EXAMINATION: [id number] DATE: 12/09/2022 12:44 INDICATION: Left knee arthroplasty. Postop. TECHNIQUE: 2 views of left knee were obtained. COMPARISON: Left knee radiographs 11/25/2022 FINDINGS: There is a total left knee arthroplasty with patellar resurfacing in near-anatomic alignment. No fracture. There is gas in the knee joint and soft tissues, consistent with recent surgery. IMPRESSION: 1. Total left knee arthroplasty in near-anatomic alignment. DS: Data Data Completed and Pending Labs on day of discharge: Labs from last 24 hours 12/11/22 12/11/22 05:40 05:40 WBC 8.2 RBC 3.25 L Hgb 10.4 L Hct 32.0 L MCV 98.5 MCH 32.0 MCHC 32.5 RDW 12.9 Plt Count 183 MPV 11.0 H Sodium 132 L Potassium 3.6 Chloride 104 Carbon Dioxide 25 Anion Gap 3 L BUN 15 Creatinine 0.70 Estim Creat Clear Calc 54 Estimated GFR > 60 Glucose 95 Calcium 8.4 Discharge Plan Discharge Attending physician on discharge: Siva Madrid Consulting providers: Francisco Padilla Discharging Clinician: Karel Monsalve Patient Disposition: Home, Self-Care Activity: other - see discharge instructions Diet: as tolerated Wound Care Instructions: other - see discharge instructions Discharge Instructions: 3 times daily for 20 minutes each time, reclining in bed with ice packs over the incision and a pillow underneath the calf of the affected leg, not under the knee. Your wound is glued so it is okay to remove the dressi
[2022-12-11] MEDS: polyethylene glycoL 3350 17 GM POWD.PACK PO (08:13)
[2022-12-11] MEDS: SENNA/DOCUSATE SODIUM TABLET 2 TAB PO (08:13)
[2022-12-11] MEDS: FAMOTIDINE 20 MG TABLET PO (08:13)
[2022-12-11] MEDS: RIVAROXABAN 10 MG TABLET PO (08:14)
[2022-12-11 08:23] VITALS: O2SAT 100
--- NOTE | 2022-12-11 12:09 | PM.IMPN ---
Progress Note: A&P Assessment and Plan (1) Osteoarthritis of left knee: Qualifiers: Osteoarthritis type: primary Qualified Code(s): M17.12 - Unilateral primary osteoarthritis, left knee Code(s): M17.12 - Unilateral primary osteoarthritis, left knee Status: Resolved Assessment and Plan: Postoperative day 2 status post left total knee replacement. Wound care, pain control, and DVT prophylaxis per orthopedics Vital signs have been stable postoperatively. (2) Anxiety: Code(s): F41.9 - Anxiety disorder, unspecified Status: Chronic Assessment and Plan: Continue alprazolam b.i.d. as needed. stable (3) Fibromyalgia: Code(s): M79.7 - Fibromyalgia Status: Chronic Assessment and Plan: Continue chronic pain regimen. stable Plan patient plans to discharge home today with her spouse and daughter will reportedly help with daily exercises. Time Spent With Patient Time: 25 minutes of time spent reviewing medical record, specialist documentation, physical assessment, labs, vitals, and current medications. all questions were answered. Subjective Date/time seen: 12/11/22 12:09 Interval history: Patient sitting up in bed and just work physical therapy. she reports pain in her left knee and mild nausea this morning that she attributes to the pain medication. She had a bowel movement this morning. She has some anxiety , but no panic attacks and thinks she would do better at home. no chest pain, shortness a breath, palpitations, dizziness, abdominal pain, vomiting, diarrhea, dysuria or paresthesia. Review of Systems Review of Systems: All systems reviewed & are unremarkable except as noted in HPI and below Exam Narrative: GENERAL: Comfortable, no acute distress , nontoxic-appearing HEENT: normocephalic, atraumatic, sclera nonicteric, pupils equal and round, pink and moist mucous membranes NECK: Unremarkable to gross inspection RESPIRATORY: respirations equal and nonlabored. Lung sounds clear to auscultation bilaterally without wheezing, rhonchi or rales. CARDIO: Normal S1-S2 regular rate and rhythm without murmurs, gallops, rubs. GI: soft, nontender, And nondistended. bowel sounds present . No suprapubic tenderness SKIN: no rashes, left knee incision not assessed EXTREMITIES: no edema, redness; Left knee tenderness to palpation. +2 pedal pulses bilateral extremities NEURO: alert and oriented x3, no focal deficits, no facial droop Objective Data Vital Signs Vital Signs: Vital Signs - 24 hr 12/10/22 13:14 12/10/22 20:52 12/10/22 20:00 Temperature 97.6 F 97.6 F Pulse Rate 90 99 99 Respiratory Rate 18 18 18 Blood Pressure 109/53 L 107/51 L Pulse Oximetry 99 99 99 Oxygen Delivery Room Air 12/11/22 05:03 12/11/22 08:23 12/11/22 08:15 Temperature 96.4 F L Pulse Rate 102 H Respiratory Rate 18 Blood Pressure 114/66 Pulse Oximetry 98 100 Oxygen Delivery Room Air Room Air Intake/Output Intake/Output: Intake & Output 12/08/22 12/09/22 12/10/22 12/11/22 23:59 23:59 23:59 23:59 Intake Total 1040 1500 510 Balance 1040 1500 510 Meds/Results Medications: Active Medications Generic Name Dose Route Start Last Admin Trade Name Freq PRN Reason Stop Dose Admin Acetaminophen 1,000 mg 12/09/22 14:00 12/11/22 08:13 Acetaminophen 500 Mg Tablet PO 1,000 mg Q6H DESIREE Administration Alprazolam 0.25 mg 12/09/22 13:43 12/10/22 20:21 Alprazolam (*Crx) 0.25 Mg Tablet BY MOUTH 0.25 mg BID PRN Administration Anxiety Famotidine 20 mg 12/09/22 21:00 12/11/22 08:13 Famotidine 20 Mg Tablet PO 20 mg Q12HR DESIREE Administration Naloxone HCl 0.1 mg 12/09/22 13:43 Naloxone Hcl 0.4 Mg/Ml Vial IV PUSH Q2M PRN Opiate Reversal Non-Formulary Medication 500 mg 12/10/22 09:00 12/10/22 16:52 Magnesium Oxide PO 01/09/23 08:59 Not Given DAILY DESIREE Ondansetron HCl 4
== END 2022-12-11 12:30 | disposition home or self-care (01) ==
LOC: ANHSURGERY 10:28 → ANH2MED 10:28
PROVIDERS: Internal Medicine Critical Care Medicine; Physician Assistant; Admitting Provider Orthopaedic Surgery; PCP Internal Medicine; Visit Provider Orthopaedic Surgery
PROC: (CPT 27447; principal; 2022-12-09 11:30)
DX: M17.12 Unilateral primary osteoarthritis, left knee (principal); F41.9 Anxiety disorder, unspecified; M79.7 Fibromyalgia; M85.80 Other specified disorders of bone density and structure, unspecified site; Z96.651 Presence of right artificial knee joint; Z87.891 Personal history of nicotine dependence; F10.90 Alcohol use, unspecified, uncomplicated; F12.90 Cannabis use, unspecified, uncomplicated; Z79.891 Long term (current) use of opiate analgesic; Z79.899 Other long term (current) drug therapy
CPT/HCPCS: 27447; 36415; 73560; 80048; 83735; 85027; 86850; 86900; 86901; 97110; 97116; 97161; 97165; 97530; 97535; A9270; C1713; C1776; G0378; J0171; J0690; J1100; J1170; J2250; J2405; J2704; J2795; J3010; J7030; J7120

== ENCOUNTER 2024-08-04 07:33 | Outpatient (CLI) | payer OTHER, SELFPAY ==
--- NOTE | ~2024-08-04 | XR_ITS ---
SINGLE AP VIEW PELVIS Ordering provider: Salazar Man MD History: . M79.604 - Pain in right leg . Comparison: February 21, 2022 FINDINGS: BONES: No acute fracture or dislocation. HIP JOINT SPACES: Moderate to severe bilateral hip osteoarthritic changes. SACROILIAC JOINT SPACES/LUMBAR SPINE: The sacroiliac joint spaces are normal. Mild degenerative peralta es of the visualized lower lumbar spine. PUBIC SYMPHYSIS: Normal. SOFT TISSUES: Normal. IMPRESSION: No acute osseous abnormality pelvis. Reviewed, dictated and finalized at location A.
--- NOTE | ~2024-08-04 | XR_ITS ---
Right Knee Technique: AP, lateral, and sunrise views were obtained. Clinical History: Knee arthroplasty Findings: No fracture or dislocation is seen. Right knee arthroplasty in place, without evidence of h ardware complication. Soft tissues are unremarkable. No joint effusion is seen. Impression: Right knee arthroplasty in place. No acute abnormality. Reviewed, dictated and finalized at location . Impression: Right knee arthroplasty in place. No acute abnormality.
--- NOTE | ~2024-08-04 | XR_ITS ---
Left Knee Technique: AP, lateral, and sunrise views were obtained. Clinical History: Knee arthroplasty Findings: No fracture or dislocation is seen. Left knee arthroplasty in place, without evidence of johns rdware complication. Soft tissues are unremarkable. No joint effusion is seen. Impression: Left knee arthroplasty. No acute abnormality. Reviewed, dictated and finalized at location . Impression: Left knee arthroplasty. No acute abnormality.
== END 2024-08-04 07:34 | disposition home or self-care (01) ==
PROVIDERS: Visit Provider Orthopaedic Surgery
DX: M79.604 Pain in right leg (principal); M79.605 Pain in left leg; Z96.652 Presence of left artificial knee joint; Z96.651 Presence of right artificial knee joint
CPT/HCPCS: 72170; 73562